=== PATIENT | female | born 2000 | race Caucasian/White ===

== ENCOUNTER 2020-03-08 10:26 | Emergency (ER) | payer OTHER, SELFPAY ==
--- NOTE | 2020-03-08 10:32 | ED.GENADULT ---
HPI - General Adult General Chief complaint: Upper Respiratory Infection Stated complaint: Sore Throat Time Seen by Provider: 03/08/20 10:32 Source: patient Mode of arrival: ambulatory Limitations: no limitations History of Present Illness HPI narrative: 19-year-old female patient presents to the [facility] with complaints of cold symptoms that started yesterday. Patient states she has had a runny nose, sneezing, congestion, sore throat. Patient states she has had a slight cough but denies any shortness of breath or chest pain. Patient states that her boyfriend did come up positive for COVID-19 last week in which she did see him one time last week. Patient states that she did get tested 2 or 3 days ago for Covid with no symptoms and was negative and got tested again today with the [facility] has not gotten her results back yet today. Related Data Home Medications Medication Instructions Recorded Confirmed No Home Medications 03/08/20 03/08/20 Allergies Allergy/AdvReac Type Severity Reaction Status Date / Time Penicillins Allergy Intermediate hives/rash Verified 03/08/20 10:38 Review of Systems Review of Systems: Narrative: CONSTITUTIONAL: Denies fever, chills, or sweats. EYES: Denies visual changes, redness, or discharge. ENT: Positive rhinorrhea, congestion, sore throat, denies otalgia. Positive sneezing CARDIOVASCULAR: Denies chest pain, palpitations, or edema. RESPIRATORY: Positive cough, denies dyspnea. GASTROINTESTINAL: Denies abdominal pain, nausea, vomiting, or diarrhea. GENITOURINARY: Denies dysuria or hematuria. SKIN: Denies rash or itching. MUSCULOSKELETAL: Denies back pain, joint pain, or myalgia. NEUROLOGIC: Denies headache, numbness, or weakness. PSYCHIATRIC: Denies anxiety or depression. [facility] Past Medical History Medical History (Updated 03/08/20 @ 11:16 by KEELEY Haas) Anxiety Depression Previous known suicide attempt PTSD (post-traumatic stress disorder) Vocal cord dysfunction Social History Social History Gender identity (if verbalized by the patient): Female Comments At the time of my signature I agree with nursing past medical history, surgical, social, and family history. There is no relevant family history pertinent to the presenting complaint. Exam Narrative: Exam Narrative: GENERAL: Well-appearing, well-nourished, and in no acute distress. HEAD: Normocephalic, atraumatic. EYES: PERRLA and EOMI. ENT: Nares with erythema and edema noted bilaterally, patent, no rhinorrhea or epistaxis. Mucous membranes moist. Posterior pharynx with no erythema, tonsillar Ra, exudates or lesions present. Bilateral TMs are clear with no erythema or foreign bodies in the canal. NECK: Supple. No lymphadenopathy CHEST: Clear to auscultation. No respiratory distress. HEART: Regular rate and rhythm. No murmur heard. Normal peripheral pulses. ABDOMEN: Soft, nontender, nondistended, normal active bowel sounds. EXTREMITIES: Normal range of motion. No edema. SKIN: Warm, dry, no rash. NEURO: No focal deficits. Alert and oriented x3. Course Vital Signs Vital signs: Vital Signs Temperature 37.2 C 03/08/20 10:55 Pulse Rate 90 03/08/20 10:55 Respiratory Rate 16 03/08/20 10:55 Blood Pressure 118/51 L 03/08/20 10:55 Pulse Oximetry 100 03/08/20 10:55 Temperature 37.2 C 03/08/20 10:55 Pulse Rate 90 03/08/20 10:55 Respiratory Rate 16 03/08/20 10:55 Blood Pressure 118/51 L 03/08/20 10:55 Pulse Oximetry 100 03/08/20 10:55 Vital signs reviewed Medical Decision Making Differential Diagnosis Differential Diagnosis: Differential diagnosis: Viral pharyngitis, pharyngitis, group A strep, infectious mononucleosis, gonococcal pharyngitis, exudative pharyngitis, oral candidiasis. Chronic allergies, postnasal drip, GERD, abscess formation, but glottitis, retropharyngeal abscess formation, or airway obstructio
[2020-03-08 10:55] VITALS: BP 118/51; PULSE 90; RESP 16; TEMP 37.2; O2SAT 100
== END 2020-03-08 11:21 | disposition home or self-care (01) ==
PROVIDERS: Emergency Provider Nurse Practitioner Family
DX: J06.9 Acute upper respiratory infection, unspecified (principal); Z20.822 Contact with and (suspected) exposure to COVID-19
CPT/HCPCS: 87081; 87804; 87880; 99213; G0463

== ENCOUNTER 2020-09-09 15:04 | Emergency (ER) | payer OTHER, SELFPAY ==
[2020-09-09 15:13] VITALS: BP 122/71; PULSE 76; RESP 18; TEMP 36.8; O2SAT 100
--- NOTE | 2020-09-09 15:47 | ED.GENADULT ---
HPI - General Adult General Chief complaint: Unspecified Stated complaint: HEADACHE Source: patient and RN notes reviewed Mode of arrival: ambulatory History of Present Illness HPI narrative: This is a 19-year-old female presented to urgent care with complaints of a white substance on her tongue that cannot be removed she also later noted that she has some discomfort in her vaginal area. Patient notes that she has also had a headache for approximately 1 year which she described as migraine in nature. I explained to patient she will have to keep a log of her migraine headaches and discuss it with her primary care physician. The patient denies SOB, CP, palpitation, extremity numbness, lightheadedness, dizziness, constipation, diarrhea, chills, or fever. Related Data Home Medications Medication Instructions Recorded Confirmed levonorgestrel [Mirena] 1 insert INTRAUTERINE ONCE 09/09/20 09/09/20 Allergies Allergy/AdvReac Type Severity Reaction Status Date / Time Penicillins Allergy Intermediate hives/rash Verified 09/09/20 15:34 Review of Systems Review of Systems: A 14 organ system Review of Systems was performed and pertinent positives included in the HPI, otherwise remaining ROS is negative. [facility] Past Medical History Medical History (Updated 09/09/20 @ 15:47 by SUNNY Matt) Anxiety Depression Previous known suicide attempt PTSD (post-traumatic stress disorder) Vocal cord dysfunction Family History Family History (Updated 09/09/20 @ 15:49 by SUNNY Matt) Other Family history non-contributory Social History Social History Gender identity (if verbalized by the patient): Female Exam Narrative: GENERAL: This is a well-nourished, well-developed patient, in no apparent distress. HEAD: normocephalic, atraumatic. EYES: PERRL. Sclera clear/white. Vision is grossly intact. EARS: External ears normal, auditory canals clear and without drainage, TMs normal without perforation. Hearing grossly intact. NOSE: External nose normal with no obvious nasal discharge, nares without redness, no rhinorrhea. THROAT: Mucous membranes moist, posterior pharynx clear. Tongue with white ways distinct patches NECK: Neck supple, non-tender without lymphadenopathy, masses or thyromegaly. CARDIOVASCULAR: Regular rate and rhythm without murmurs, gallops, or rubs. RESPIRATORY: Clear to auscultation. Breath sounds equal bilaterally. No wheezes, rales, or rhonchi. GASTROINTESTINAL: Abdomen soft, non-tender, nondistended. Bowel sounds are active. No hepato-splenomegaly, or palpable masses. No guarding. SKIN: warm, intact with no suspicious lesions or rash, good texture and turgor. NEURO: awake, alert, and oriented to person, place and time. There were no obvious focal neurologic abnormalities. Steady gait EXTREMITIES: Normal range of motion. No edema. No calf tenderness. Negative Homans sign bilaterally. BACK: Nontender without deformity or crepitance. No flank tenderness. Course Course Emergency Course: Patient will be treated for thrush and yeast infection with nystatin and Diflucan Vital Signs Vital signs: Vital Signs Temperature 98.2 F 09/09/20 15:13 Pulse Rate 76 09/09/20 15:13 Respiratory Rate 18 09/09/20 15:13 Blood Pressure 122/71 09/09/20 15:13 Pulse Oximetry 100 09/09/20 15:13 Temperature 98.2 F 09/09/20 15:13 Pulse Rate 76 09/09/20 15:13 Respiratory Rate 18 09/09/20 15:13 Blood Pressure 122/71 09/09/20 15:13 Pulse Oximetry 100 09/09/20 15:13 Medical Decision Making Differential Diagnosis Differential Diagnosis: Thrush versus candidiasis vulvovaginal Vital Signs Vital Signs: Vital Signs Temperature 98.2 F 09/09/20 15:13 Pulse Rate 76 09/09/20 15:13 Respiratory Rate 18 09/09/20 15:13 Blood Pressure 122/71 09/09/20 15:13 Pulse Oximetry 100 09/09/20 15:13 Temperature 98.2 F
== END 2020-09-09 15:50 | disposition home or self-care (01) ==
PROVIDERS: Emergency Provider Nurse Practitioner
DX: B37.0 Candidal stomatitis (principal); B37.3 Candidiasis of vulva and vagina
CPT/HCPCS: 99213; G0463

== ENCOUNTER 2020-10-06 12:31 | Emergency (ER) | payer OTHER, SELFPAY ==
--- NOTE | ~2020-10-06 | XR_ITS ---
EXAMINATION: XR nasal bones min 3V EXAM DATE: 10/06/2020 13:15 INDICATION: Nose pain s/p running into wall. TECHNIQUE: Nasal bone frontal, bilateral lateral projections. There is no prior study for compariso n. FINDINGS: There is lucency through the base of the maxillary anterior nasal spine identified on the l ateral projection. This finding has been indicated, marked on the examination for review, clinical co rrelation. No suspicion of nasal bone fracture. There is no subcutaneous gas. The soft tissue is unr emarkable. There are no radiopaque foreign bodies. IMPRESSION: Possible acute nondisplaced maxillary anterior nasal spine fracture, clinical correlation . Reviewed, dictated and finalized at location B. IMPRESSION: Possible acute nondisplaced maxillary anterior nasal spine fracture , clinical correlation.
[2020-10-06 12:43] VITALS: BP 124/63; PULSE 81; RESP 16; TEMP 37.1; O2SAT 100
--- NOTE | 2020-10-06 12:46 | ED.HEATRA ---
HPI - Head Injury General Chief complaint: Trauma Stated complaint: nose pain Time Seen by Provider: 10/06/20 12:46 Source: patient and RN notes reviewed Mode of arrival: ambulatory Limitations: no limitations History of Present Illness HPI Narrative: 19-year-old female presents to the [facility] with complaints of nose pain, states Sunday night did not turn the lights on and walked into a wall. Minor swelling noted. Abrasion noted. Denies loss of consciousness. Denies any blurry vision or change in vision. No orbital tenderness. Related Data Home Medications Medication Instructions Recorded Confirmed levonorgestrel [Mirena] 1 insert INTRAUTERINE ONCE 09/09/20 09/09/20 Allergies Allergy/AdvReac Type Severity Reaction Status Date / Time Penicillins Allergy Intermediate hives/rash Verified 09/09/20 15:34 Review of Systems Review of Systems: All systems reviewed & are unremarkable except as noted in HPI and below Constitutional: Constitutional: Reports no additional constitutional complaints Eyes: Eyes: Reports no additional eye complaints, Denies change in vision and Denies photophobia ENT: Reports as per HPI Comments: Nasal bridge pain,redness,swelling Cardiovascular: Cardiovascular: Reports no additional cardiovascular complaints Respiratory: Respiratory: Reports no additional respiratory complaints Musculoskeletal: Musculoskeletal: Reports no additional musculoskeletal complaints Integumentary/Breasts: Skin/Breast: Reports system reviewed and no additional complaints, except as docu Neurologic: Reports system reviewed and no additional complaints, except as documented Psychiatric: Psychiatric: Reports no additional psychiatric complaints Allergic/Immunologic: Allergic/Immunologic: Reports no additional allergic/immunologic complaints [facility] Past Medical History Medical History Anxiety Depression Previous known suicide attempt PTSD (post-traumatic stress disorder) Vocal cord dysfunction Family History Family History Other Family history non-contributory Social History Social History Gender identity (if verbalized by the patient): Female Comments At the time of my signature, I reviewed and agree with the nursing past medical, surgical, social, and family history. There is no relevant family history pertinent to the patient complaint. Exam Const: General: healthy appearing, no acute distress and alert Nutritional Appearance: well nourished Orientation/consciousness: patient oriented x3 Limitations: no limitations HENMT: Ears: external ears normal and TM's normal bilaterally Face images: 1. Mild swelling and tenderness to palpation. Small abrasion noted. 2. No tenderness, exam done after report from x-ray. No swelling, redness, bruising noted Mouth: Yes Normal oral and palatal mucosa present, Yes lip normal, Yes tongue normal, Yes oropharynx normal and Yes moist mucous membranes Throat: posterior oropharynx normal Eyes: Conjunctivae: conjunctivae normal Pupils: Equal, round and reactive pupils present Neck: Neck: normal visual inspection, no lymphadenopathy and no meningeal signs Chest: Chest palpation & inspection: normal inspection of the chest Resp: Effort & Inspection: normal respiratory effort Cardio: Rate: regular rate Rhythm: regular rhythm Skin: General skin exam: normal color Rashes: no rashes Neuro: General: patient oriented x3, moves all extremities, no meningeal signs and no focal motor deficits Speech: normal speech Gait exam (Neuro): Normal gait present Extrem: General: normal to inspection Psych: Appearance: grossly normal and well kempt Mental Status: mental status grossly normal Affect: normal affect Thought content: Yes Normal thought content present Course Course Emergency Course: Discharge inst
== END 2020-10-06 13:40 | disposition home or self-care (01) ==
PROVIDERS: Emergency Provider Nurse Practitioner
DX: S00.33XA Contusion of nose, initial encounter (principal); W22.01XA Walked into wall, initial encounter
CPT/HCPCS: 70160; 99213; G0463

== ENCOUNTER 2021-04-22 08:54 | Emergency (ER) | payer OTHER, SELFPAY ==
[2021-04-22 09:02] VITALS: BP 122/63; PULSE 83; RESP 16; TEMP 37.1; O2SAT 100
--- NOTE | 2021-04-22 09:43 | ED.GENADULT ---
HPI - General Adult General Chief complaint: Neck Pain/Injury Stated complaint: right side neck pain Time Seen by Provider: 04/22/21 09:38 Source: patient and RN notes reviewed Mode of arrival: ambulatory Limitations: no limitations History of Present Illness HPI narrative: Patient presents today complaining of a swollen lymph node below her right ear x2 days. Denies any ill symptoms. Patient did have COVID O2 loss but, but without any residual symptoms. She currently rates her pain 7/10 and has tried no medication for symptoms prior to arrival. MD complaint: Swollen lymph node Related Data Home Medications Medication Instructions Recorded Confirmed levonorgestrel [Mirena] 1 insert INTRAUTERINE ONCE 09/09/20 09/09/20 Allergies Allergy/AdvReac Type Severity Reaction Status Date / Time Penicillins Allergy Intermediate hives/rash Verified 04/22/21 09:26 Review of Systems Review of Systems: CONSTITUTIONAL: Denies body aches, fever, chills, or sweats. EYES: Denies visual changes, redness, or discharge. ENT: Denies rhinorrhea, congestion, sore throat, or otalgia.+ Swollen lymph node CARDIOVASCULAR: Denies chest pain, palpitations, or edema. RESPIRATORY: Denies cough or dyspnea. GASTROINTESTINAL: Denies abdominal pain, nausea, vomiting, or diarrhea. GENITOURINARY: Denies dysuria or hematuria. SKIN: Denies rash, itching, or wounds. MUSCULOSKELETAL: Denies back pain, joint pain, or myalgia. NEUROLOGIC: Denies headache, numbness, tingling, or weakness. PSYCH: Denies depression or anxiety. [facility] Past Medical History Medical History Anxiety Depression Previous known suicide attempt PTSD (post-traumatic stress disorder) Vocal cord dysfunction Family History Family History Other Family history non-contributory Social History Social History Gender identity (if verbalized by the patient): Female Comments At time of signature, I have reviewed and agree with nursing past medical, surgical, social and family history unless otherwise noted. Please see nursing chart for further information. There is no relevant family history pertinent to the presenting complaint Exam Narrative: GENERAL: Well-appearing, well-nourished, and in no acute distress. HEAD: Normocephalic, atraumatic. EYES: EOMI. No redness or drainage. Conjunctivae normal. ENT: Mucous membranes pink and moist. Nares clear. No rhinorrhea. TMs normal bilaterally. NECK: Normal AROM. Supple. Patient has 1 slightly swollen, tender right parotid lymph node. CHEST: No respiratory distress. EXTREMITIES: Normal range of motion. No edema. SKIN: Warm, dry, no rash. Capillary refill normal. Normal skin turgor. NEURO: No focal deficits. Alert and oriented x3. Gait steady. PSYCH: Normal affect. No signs of depression or anxiety. Course Course Level of Care: Express Care Visit Vital Signs Vital signs: Vital Signs Temperature 98.8 F 04/22/21 09:02 Pulse Rate 83 04/22/21 09:02 Respiratory Rate 16 04/22/21 09:02 Blood Pressure 122/63 04/22/21 09:02 Pulse Oximetry 100 04/22/21 09:02 Temperature 98.8 F 04/22/21 09:02 Pulse Rate 83 04/22/21 09:02 Respiratory Rate 16 04/22/21 09:02 Blood Pressure 122/63 04/22/21 09:02 Pulse Oximetry 100 04/22/21 09:02 Reviewed. Pt has been instructed to follow up with her PCP regarding her elevated blood pressure today. Medical Decision Making Differential Diagnosis Differential Diagnosis: Parotitis, lymphadenitis Vital Signs Vital Signs: Vital Signs Temperature 98.8 F 04/22/21 09:02 Pulse Rate 83 04/22/21 09:02 Respiratory Rate 16 04/22/21 09:02 Blood Pressure 122/63 04/22/21 09:02 Pulse Oximetry 100 04/22/21 09:02 Temperature 98.8 F 04/22/21 09:02 Pulse Rate 83 04/22/21
== END 2021-04-22 09:48 | disposition home or self-care (01) ==
PROVIDERS: Emergency Provider Nurse Practitioner
DX: L04.0 Acute lymphadenitis of face, head and neck (principal); Z86.16 Personal history of COVID-19
CPT/HCPCS: 99212; G0463

== ENCOUNTER 2022-08-03 15:22 | Emergency (ER) | payer OTHER, SELFPAY ==
[2022-08-03 15:30] VITALS: BP 121/52; PULSE 89; RESP 16; TEMP 36.6; O2SAT 100
--- NOTE | 2022-08-03 16:05 | ED.FEMALEGU ---
HPI - Female Genitourinary General Chief complaint: Urogenital-Female Stated complaint: vaginal issue Time Seen by Provider: 08/03/22 16:02 Source: patient and RN notes reviewed Mode of arrival: ambulatory Limitations: no limitations History of Present Illness HPI Narrative: Patient presents today complaining of a 2 day history of vaginal itching, burning, and irritation with white discharge. She is on a course of clindamycin after root canal and finishes this tomorrow. She has had vaginal yeast infections after antibiotics in the past and believes this is what she has now. She has tried no [id number] treatment prior to arrival as she has tried Monistat in the past and it was not helpful. Related Data Home Medications Medication Instructions Recorded Confirmed levonorgestrel 21 mcg/24 hours (8 1 insert intrauterine ONCE 09/09/20 08/03/22 yrs) 52 mg intrauterine device (Mirena) clindamycin HCl 150 mg capsule 150 mg PO QID 08/03/22 08/03/22 Allergies Allergy/AdvReac Type Severity Reaction Status Date / Time Penicillins Allergy Intermediate hives/rash Verified 08/03/22 15:32 Review of Systems Review of Systems: CONSTITUTIONAL: Denies body aches, fever, chills, or sweats. EYES: Denies visual changes, redness, or discharge. ENT: Denies rhinorrhea, congestion, sore throat, or otalgia. CARDIOVASCULAR: Denies chest pain, palpitations, or edema. RESPIRATORY: Denies cough or dyspnea. GASTROINTESTINAL: Denies abdominal pain, nausea, vomiting, or diarrhea. GENITOURINARY: Denies dysuria or hematuria.+ vaginal itching, burning, irritation, discharge SKIN: Denies rash, itching, or wounds. MUSCULOSKELETAL: Denies back pain, joint pain, or myalgia. NEUROLOGIC: Denies headache, numbness, tingling, or weakness. PSYCH: Denies depression or anxiety. [facility] Past Medical History Medical History Anxiety Depression Previous known suicide attempt PTSD (post-traumatic stress disorder) Vocal cord dysfunction Family History Family History Other Family history non-contributory Social History Social History Gender identity (if verbalized by the patient): Female Comments At time of signature, I have reviewed and agree with nursing past medical, surgical, social and family history unless otherwise noted. Please see nursing chart for further information. There is no relevant family history pertinent to the presenting complaint Exam Narrative: GENERAL: Well-appearing, well-nourished, and in no acute distress. HEAD: Normocephalic, atraumatic. EYES: EOMI. No redness or drainage. Conjunctivae normal. ENT: Mucous membranes pink and moist. NECK: Normal AROM. CHEST: No respiratory distress. : deferred EXTREMITIES: Normal range of motion. No edema. SKIN: Warm, dry, no rash. Capillary refill normal. Normal skin turgor. NEURO: No focal deficits. Alert and oriented x3. Gait steady. PSYCH: Normal affect. No signs of depression or anxiety. Course Course Level of Care: Express Care Visit Vital Signs Vital signs: Vital Signs Temperature 98 F 08/03/22 15:30 Pulse Rate 89 08/03/22 15:30 Respiratory Rate 16 08/03/22 15:30 Blood Pressure 121/52 L 08/03/22 15:30 Pulse Oximetry 100 08/03/22 15:30 Oxygen Delivery Room Air 08/03/22 15:30 Temperature 98 F 08/03/22 15:30 Pulse Rate 89 08/03/22 15:30 Respiratory Rate 16 08/03/22 15:30 Blood Pressure 121/52 L 08/03/22 15:30 Pulse Oximetry 100 08/03/22 15:30 Oxygen Delivery Room Air 08/03/22 15:30 Reviewed. Pt has been instructed to follow up with her PCP regarding her elevated blood pressure today. MDM - Female Genitourinary MDM Narrative Medical decision making narrative: Symptoms consistent with vaginal yeast infection. Will send
== END 2022-08-03 16:10 | disposition home or self-care (01) ==
PROVIDERS: Emergency Provider Nurse Practitioner; PCP Registered Nurse
DX: B37.31 Acute candidiasis of vulva and vagina (principal)
CPT/HCPCS: 99213; G0463

== ENCOUNTER 2023-02-17 10:29 | Emergency (ER) | payer SELFPAY ==
[2023-02-17 10:46] VITALS: BP 99/69; PULSE 92; RESP 16; TEMP 37.6; O2SAT 100
--- NOTE | 2023-02-17 11:30 | ED.URI ---
HPI - URI/Sore Throat General Chief Complaint: Upper Respiratory Infection Stated Complaint: sore throat,fever Time Seen by Provider: 02/17/23 11:31 History of Present Illness HPI Narrative: 22-year-old female presented for complaint sore throat, headache, body aches, and fever. Onset 2 days. Endorses temperature up to 101 today. She took ibuprofen yesterday. She denies shortness of breath, wheezing, nausea vomiting, diarrhea or lethargy. Denies known sick contacts. Related Data Home Medications Medication Instructions Recorded Confirmed levonorgestrel 21 mcg/24 hours (8 1 insert intrauterine ONCE 09/09/20 08/03/22 yrs) 52 mg intrauterine device (Mirena) Allergies Allergy/AdvReac Type Severity Reaction Status Date / Time Penicillins Allergy Intermediate hives/rash Verified 08/09/22 12:44 Review of Systems Review of Systems: Per HPI [facility] Past Medical History Medical History Anxiety Depression Previous known suicide attempt PTSD (post-traumatic stress disorder) Vocal cord dysfunction Family History Family History Other Family history non-contributory Social History Social History Gender identity (if verbalized by the patient): Female Exam Narrative: GENERAL: Ill-appearing, nontoxic EYES: conjunctivae clear ENT: Mucous membranes moist. TMs pearly saha with normal light reflex bilaterally; no tragal tenderness. Oropharynx erythematous without lesions. Tonsils not enlarged and without exudate. No drooling, no hoarseness, no trismus, uvula midline. No tripod positioning, hot potato voice, or soft palate swelling. NECK: Supple. No lymphadenopathy CHEST: Clear to auscultation, breath sounds equal. No respiratory distress, speaks in full sentences. HEART: Regular rate and rhythm. No murmur heard. SKIN: Warm, dry, no rash. NEURO: Alert and oriented x3. Course Course Emergency Course: Patient is aware of diagnosis, understands and agrees to treatment plan. Anticipatory guidance given. Patient agrees to follow-up as directed and is aware of reasons to seek care at the emergency department. Portions of this record may have been created with voice recognition software [employer]Like of Care: Express Care Visit Vital Signs Vital signs: Vital Signs Temperature 99.6 F 02/17/23 10:46 Pulse Rate 92 02/17/23 10:46 Respiratory Rate 16 02/17/23 10:46 Blood Pressure 99/69 L 02/17/23 10:46 Pulse Oximetry 100 02/17/23 10:46 Oxygen Delivery Room Air 02/17/23 10:46 Temperature 99.6 F 02/17/23 10:46 Pulse Rate 92 02/17/23 10:46 Respiratory Rate 16 02/17/23 10:46 Blood Pressure 99/69 L 02/17/23 10:46 Pulse Oximetry 100 02/17/23 10:46 Oxygen Delivery Room Air 02/17/23 10:46 MDM - URI/Sore Throat MDM Narrative Medical decision making narrative: positive flu. Negative COVID and strep result reviewed with pt. Advise supportive treatments. Patient is appropriate for outpatient treatment and follow-up. Differential Diagnosis Differential diagnosis: Likely upper respiratory infection, viral infection and pharyngitis Lab Data Labs: Lab Results 02/17/23 Range/Units Unknown POC SARS CoV-2 Ag Negative (Negative) Influenza A Screen Negative Reference Range: Negative Influenza B Screen Positive Reference Range: Negative Strep Screen Presumptive Negative *(Reference Range: Negative)* Discharge Plan Discharge Clinical Impression: Influenza Patient Disposition: Home, Self-Care Condition: Stable Instructions: Influenza (ED) Additional Instructions: Influenza positive You
== END 2023-02-17 11:50 | disposition home or self-care (01) ==
PROVIDERS: Emergency Provider Nurse Practitioner Family; PCP Registered Nurse
DX: J10.1 Influenza due to other identified influenza virus with other respiratory manifestations (principal); Z20.822 Contact with and (suspected) exposure to COVID-19
CPT/HCPCS: 87081; 87426; 87804; 87880; 99213; G0463